=== PATIENT | male | born 1950 | race Caucasian/White ===

== ENCOUNTER → 2018-11-06 | Outpatient (CLI) | payer MEDICARE ==
[~2018-11-06] MED LIST: ATOR40TA78 PO; HYDR25TA6 PO; LOSA50TA14 PO; METO50TA82 PO
[2018-11-06 12:32] LABS: BASOPHILS # (AUTO) 0.02 x10^3/uL (0-0.1); BASOPHILS % (AUTO) 0 % (0-1); EOSINOPHILS # (AUTO) 0.06 x10^3/uL (0-0.4); EOSINOPHILS % (AUTO) 1 % (1-7); LYMPHOCYTES # (AUTO) 1.78 x10^3/uL (1-3.4); LYMPHOCYTES % (AUTO) 23 % (22-44); MD NO; MEAN CORPUSCULAR HEMOGLOBIN 33.4 pg (27.5-34.5); MEAN CORPUSCULAR HGB CONC 34.9 g/dL (33.2-36.2); MEAN CORPUSCULAR VOLUME 95.7 fL (81-97); MEAN PLATELET VOLUME 8.4 fL (7.4-10.4); MONOCYTES % (AUTO) 7 % (2-9); NEUTROPHILS % (AUTO) 70 % (42-75); PLATELET COUNT 204 x10^3/uL (130-400); RED BLOOD COUNT 4.86 x10^6/uL (4.38-5.82); RED CELL DISTRIBUTION WIDTH 12.4 % (9.4-14.8)
[2018-11-06 12:39] LABS: INTERNATIONAL NORMALIZED RATIO 0.97 (0.93-1.1); PROTHROMBIN TIME 10.3 Seconds (9.6-11.5)
[2018-11-06 12:43] LABS: ALANINE AMINOTRANSFERASE 49 U/L (12-78); ALBUMIN 3.6 g/dL (3.4-5.0); ANION GAP 5 mmol/L (5-15); CALCIUM 9.3 mg/dL (8.5-10.1); CHLORIDE 108 mmol/L (98-107)
[2018-11-06 12:45] LABS: ALKALINE PHOSPHATASE 112 U/L (45-117); BILIRUBIN,TOTAL 0.6 mg/dL (0.2-1.0); TOTAL PROTEIN 7.2 g/dL (6.4-8.2)
== END | disposition home or self-care (01) ==
LOC: STAR 11:21
PROVIDERS: ATTEND Surgery
DX: Z01.818 Encounter for other preprocedural examination (principal)
CPT/HCPCS: 36415; 80053; 85025; 85610; 93005

== ENCOUNTER 2018-11-15 07:42 | Day surgery (SDC) | payer MEDICARE ==
[~2018-11-15] VITALS: Ht 185.4 cm; Wt 125.0 kg
[2018-11-15] MEDS ORDERED: LACTATED RINGERS 1,000 ML IV SCH (08:40)
[2018-11-15 08:43] VITALS: BP 152/94
[2018-11-15] MEDS ORDERED: EPINEPHRINE 1 MG/ML, 1ML ONE (08:47)
[2018-11-15] MEDS ORDERED: BUPIVACAINE/PF-EPI 0.5% 1:200K ONE ×2 (08:47→08:52)
[2018-11-15] MEDS ORDERED: MINERAL OIL 10 ML VIAL MC ONE (08:47)
[2018-11-15] MEDS ORDERED: BACITRACIN OINT 500U/GM, 15 GM ONE (09:06)
[2018-11-15] MEDS ORDERED: ISOSULFAN BLUE 10 MG/ML, 5ML IV ONE (09:12)
[2018-11-15] MEDS ORDERED: MIDAZOLAM 1 MG/ML, 2ML ONE (09:19)
[2018-11-15] MEDS ORDERED: FENTANYL PF 250 MCG/5ML ONE (09:20)
[2018-11-15] MEDS ORDERED: PROPOFOL 10 MG/ML, 20ML ONE (09:20)
[2018-11-15] MEDS ORDERED: SODIUM CHLORIDE 0.9% PF 10ML ONE (09:21)
[2018-11-15] MEDS ORDERED: CEFAZOLIN 1,000 MG ONE ×2 (09:21)
[2018-11-15] MEDS ORDERED: ONDANSETRON 2MG/ML, 2ML IV PRN (09:30)
[2018-11-15] MEDS ORDERED: PROMETHAZINE 25 MG/ML, 1ML IV PRN (09:30)
[2018-11-15] MEDS ORDERED: hydrALAzine 20 MG/ML, 1ML IV PRN (09:30)
[2018-11-15] MEDS ORDERED: MORPHINE SULFATE 4 MG/ML, 1ML IVPush PRN (09:30)
[2018-11-15] MEDS ORDERED: OXYcodone 5 MG/5 ML ORAL.SOL UDC PO PRN (09:30)
[2018-11-15] MEDS ORDERED: ACETAMINOPHEN 325 MG TABLET PO PRN (09:30)
[2018-11-15] MEDS ORDERED: HYDROmorphone 2 MG/ML, 1ML IVPush PRN (09:30)
[2018-11-15] MEDS ORDERED: PROMETHAZINE 25 MG/ML, 1ML IM PRN ×2 (09:30)
[2018-11-15] MEDS ORDERED: FENTANYL PF 100 MCG/2ML IV PRN (09:30)
[2018-11-15] MEDS ORDERED: MEPERIDINE/PF 25MG/0.5ML IVPush PRN (09:30)
[2018-11-15] MEDS ORDERED: ONDANSETRON ODT 8 MG PO PRN (09:30)
[2018-11-15] MEDS ORDERED: PROMETHAZINE 25 MG SUPP PR PRN (09:30)
[2018-11-15] MEDS ORDERED: PROMETHAZINE 12.5 MG SUPP PR PRN (09:30)
[2018-11-15] MEDS ORDERED: LABETALOL 5MG/ML, 20ML IV PRN (09:30)
[2018-11-15] MEDS ORDERED: GLYCOPYRROLATE 0.2MG/1ML, 5ML ONE (09:34)
== END 2018-11-15 12:45 | disposition home or self-care (01) ==
LOC: OUT 07:42 → EDSTATUS 10:00 → OUT 12:45
PROVIDERS: ATTEND Surgery
DX: C43.61 Malignant melanoma of right upper limb, including shoulder (principal); L57.8 Other skin changes due to chronic exposure to nonionizing radiation; R59.1 Generalized enlarged lymph nodes; K21.9 Gastro-esophageal reflux disease without esophagitis; I10 Essential (primary) hypertension; E78.00 Pure hypercholesterolemia, unspecified; Z87.39 Personal history of other diseases of the musculoskeletal system and connective tissue; Z98.890 Other specified postprocedural states; Z98.52 Vasectomy status; Z72.89 Other problems related to lifestyle
CPT/HCPCS: 26118; 38525; 38792; 88305; 88307; 88341; 88342; A9541; C9898; J0171; J0690; J2250; J2704; J3010; J3490; J7120